=== PATIENT | male | born 1975 | race Two or more races ===

== ENCOUNTER 2025-06-01 13:21 | Emergency (ER) | payer BC, SELFPAY ==
[2025-06-01 13:24] VITALS: BP 122/75
[2025-06-01 13:56] VITALS: BP 124/77
[2025-06-01 13:58] VITALS: BMI 24.6
[2025-06-01 14:00] VITALS: BP 108/83
--- NOTE | 2025-06-01 14:36 | ED.GENMED ---
History of Present Illness
<Leti Milligan MD, Resident - Last Filed: 06/01/25 16:08>
General
Chief Complaint: Skin Problem
Source: patient
Exam Limitations: none
Time Seen by Provider: 06/01/25 14:10
History of Present Illness
History of Present Illness:
50yo M with no significant pmh who presents with R gluteal abscess.
Pt states that a few years ago he had an abscess in the same position, which was drained. At that time, he was told it might recur. This is the first time he has had a recurrence, it is in the same place. His PCP prescribed him amox-clav on Monday,
which he has been taking since then. Took a dose this am. States that last night he noticed some blood coming from it, and this am he saw pus draining, so he came to the ED. Since yesterday he has been putting neosporin on it and covering it with a
bandage. Denies any fever/chills. Denies any spreading pain down his R leg or up back. No pain with movement of leg or sitting, just discomfort when it rubs on his jeans. Had diarrhea a few days ago, which has since resolved.
Past History
<Leti Milligan MD, Resident - Last Filed: 06/01/25 16:08>
Past History
ED Past Medical History: None
ED Past Surgical History: None
Review of Systems
<Leti Milligan MD, Resident - Last Filed: 06/01/25 16:08>
Review of Systems
Allergies reviewed?: Yes
All Other Systems: ROS reviewed and negative except as documented in HPI and ROS
Constitutional: Reports no symptoms
EENT: Reports no symptoms
Respiratory: Reports no symptoms
Cardiac: Reports no symptoms
ABD/GI: Reports diarrhea
: Reports no symptoms
Musculoskeletal: Reports no symptoms
Skin: Reports other (abscess on R gluteus with bloody/purulent drainage )
Neurological: Reports no symptoms
Psychiatric: Reports no symptoms
Phy Exam
<Leti Milligan MD, Resident - Last Filed: 06/01/25 16:08>
General Physical Exam
General Presentation: well appearing and no apparent distress
General age: appears stated age
General Skin: warm, dry and other (R gluteus with abscess with purulent punctum soaking through overlying cause, some fluctuance, some firmness in surrounding skin, no spreading erythema or warmth)
General Habitus: normal
General Mental: alert
General Hydration: appears well hydrated
Cardiovascular Exam
Cardiovascular Exam: regular rate/rhythm
Pulmonary Exam
Pulmonary Exam: no respiratory distress
Gastrointestinal Exam
Gastrointestinal Exam: non distended
Neurological Exam
Neurological Exam: alert
Musculoskeletal Exam
Musculoskeletal Exam: full ROM and no edema
Skin Exam
Skin Exam: other (see above )
Psychiatric Exam
Psychiatric Exam: normal mood/affect
Course
<Leti Milligan MD, Resident - Last Filed: 06/01/25 16:08>
Vital Signs
Initial and Last Documented VS:
Initial Vital Signs
Temp Pulse Resp BP Pulse Ox
98 F 74 16 122/75 98
06/01/25 13:24 06/01/25 13:24 06/01/25 13:24 06/01/25 13:24 06/01/25 13:24
Last Documented Vital Signs
Temp Pulse Resp BP Pulse Ox
98 F 62 18 108/83 97
06/01/25 13:24 06/01/25 15:00 06/01/25 15:00 06/01/25 14:00 06/01/25 15:00
<Brandy Clay MD - Last Filed: 06/01/25 16:03>
Vital Signs
Initial and Last Documented VS:
Initial Vital Signs
Temp Pulse Resp BP Pulse Ox
98 F 74 16 122/75 98
06/01/25 13:24 06/01/25 13:24 06/01/25 13:24 06/01/25 13:24 06/01/25 13:24
Last Documented Vital Signs
Temp Pulse Resp BP Pulse Ox
98 F 62 18 108/83 97
06/01/25 13:24 06/01/25 15:00 06/01/25 15:00 06/01/25 14:00 06/01/25 15:00
<Leti Milligan MD, Resident - Last Filed: 06/01/25 16:08>
MDM/Problems Addressed
Differential Diagnosis Includes:
Presentation c/w abscess of R gluteus
Could benefit from I&D
MDM/Problems Addressed:
- I&D
- Iodoform gauze packing
- D/c neosporin
- Convert course of amox-clav to doxycycline
<Leti Milligan MD, Resident - Last Filed: 06/01/25 16:08>
*Pulse Oximetry
SaO2: 95
Oxygen Mode of Delivery: Room air
Patient hypoxic: no
*Critical Care Note
Total Time (30-74mins, 75-104mins- exclusive of procedures): Not Applicable
<Leti Milligan MD, Resident - Last Filed: 06/01/25 16:08>
Update Note
Update Note:
POCUS did not demonstrate deep pocket sufficient for complete I&D
Drained abscess using pressure and blunt dissection, followed by irrigation with sterile saline
ED Attending Note
<Leti Milligan MD, Resident - Last Filed: 06/01/25 16:08>
-
Portions of this chart may have been created with voice recognition software.� Occasional wrong word or��sound alike� substitutions may have occurred due to the inherent limitations of voice recognition software.
<Brandy Clay MD - Last Filed: 06/01/25 16:03>
ED Attending Note
Patient seen and examined by attending physician: Yes
I performed a history and physical exam of patient and discussed management with resident, I reviewed resident's note and agree with documented findings and plan of care.: Yes
ED Attending Note:
I have seen and evaluated the patient with a [id number] encounter. I have spoken to the [resident] and involved in the medical history, the physical exam, medical decision making.
Evaluation and management service: agree unless noted differently below.
Results interpretation: agree unless noted differently below.
50-year-old man presenting to the emergency department with an abscess to his buttock. Patient states that he developed an abscess and went to his primary care doctor who started him on Augmentin a few days ago. Last night he noticed that started
draining purulent drainage so he came in for further evaluation. No fevers chills. No numbness tingling. The redness has not worsened. During my evaluation patient is resting comfortably. He does have a 2 cm actively draining abscess with
surrounding induration and mild erythema. It is draining purulent drainage and some blood. Given the small area of fluctuance and superficial nature of it, we will hold off on CT scan as less likely to be a deeper space infection. bedside
ultrasound completed which did show a very small residual abscess about 0.5 cm x 0.5 cm. It is actively draining. After shared decision making we will bluntly dissect the abscess and irrigated with normal saline. Given the purulent drainage we
will also add on Bactrim for MRSA coverage.
Patient tolerated the procedure well. Patient advised to use Hibiclens as well as warm compresses. Patient does have a follow-up with surgery on Monday. He will keep that appointment. Strict return precautions given.
Discharge Plan
Departure
Patient Disposition: Home (Routine Discharge)
Date of Disposition: 06/01/25
Time of Disposition: 16:04
Patient with high blood pressure during this ER visit?: No
Condition: Good
Covid-19: Not Applicable
Discharge Problem:
Abscess
Prescriptions:
New
sulfamethoxazole-trimethoprim [Bactrim DS] 800-160 mg tablet
1 tab PO BID 7 Days Qty: 14 0RF
Referrals:
Rusty Schilling MD [Family Provider, Family Practice]
Activity Restrictions/Additional Instructions:
You were seen in the ED for evaluation of a right gluteal abscess. This was drained without incision, using pressure and irrigation with sterile saline.
You were prescribed an antibiotic called bactrim. Please take 1 tablet twice a day for 7 days (in addition to the amoxacillin-clavulonate from your primary doctor).
Apply warm compresses to the affected area 1-2 times daily. Rinse your buttocks with Hibiclens (can get over the counter) daily in the shower.
Contact your provider if you have spreading redness, warmth, and pain from the wound site, if you see worsening pus output, or if you have fevers at home.
Interventions
Interventions:
*Risk Screen - Suicide Last Done: 06/01/25 13:25
*General Assessment Last Done: 06/01/25 13:59
*Neglect/Abuse Screening Last Done: 06/01/25 13:25
*ED- Fall Risk Assessment Last Done: 06/01/25 13:59
*ED COVID-19 Vaccine History Last Done: 06/01/25 13:59
*ED Influenza Vaccine History Last Done: 06/01/25 13:59
ED-Skin Assessment Last Done: 06/01/25 14:00
Discharge Date and Time
Print Language: CENTRAL AFRICAN
[2025-06-01 15:07] VITALS: BP 102/61
== END 2025-06-01 16:37 | disposition home or self-care (01) ==
LOC: EMR 13:21
PROVIDERS: EMERGENCY PHYSICIAN Student in an Organized Health Care Education/Training Program; FAMILY PHYSICIAN Family Medicine
DX: L02.31 Cutaneous abscess of buttock (principal)
CPT/HCPCS: 99282; 10060